=== PATIENT | female | born 1990 | race Two or more races ===

== ENCOUNTER 2024-05-12 08:45 | Inpatient (IN) | payer OTHER ==
[~2024-05-12] VITALS: Ht 162.6 cm; Wt 58.5 kg
[2024-05-12] MEDS ORDERED: OMEPRAZOLE (09:25)
[2024-05-12] MEDS ORDERED: FAMOTIDINE 40MG (09:33)
[2024-05-12 10:20] LABS: RH POSITIVE
[2024-05-16] MEDS ORDERED: ACID REDUCER20 M1 (14:14)
[2024-05-16] MEDS ORDERED: FAMOTIDINE20 MG (14:14)
[2024-05-16] MEDS ORDERED: POVIDONE-IODINE 118 ML BOTT TOP ONE (17:30)
[2024-05-16] MEDS ORDERED: CEFAZOLIN SODIUM 1,000 MG VIAL IV ONE (17:30)
[2024-05-16] MEDS ORDERED: HEMOSTATIC MATRIX 1 KIT KIT TOP ONE (17:45)
[2024-05-16] MEDS ORDERED: ONDANSETRON HCL 2 MG/ML VIAL IV PRN (18:30)
[2024-05-16] MEDS ORDERED: MORPHINE SULFATE 4 MG/ML VIAL IV PRN (18:30)
[2024-05-16] MEDS ORDERED: RINGERS SOLUTION,LACTATED 1,000 ML IV SCH (18:45)
[2024-05-16] MEDS ORDERED: MORPHINE SULFATE 4 MG/ML VIAL IV ONE ×2 (19:10→21:15)
[2024-05-16 22:17] VITALS: BP 121/80
[2024-05-17] MEDS ORDERED: CEFAZOLIN SODIUM 1,000 MG VIAL IV SCH
[2024-05-17 00:21] LABS: HEMATOCRIT 34.7 % (36.0-45.00); HEMOGLOBIN 11.8 g/dL (12.0-15.00); MEAN CELL VOLUME 83.7 fL (80.00-100.00); MEAN CORPUSCULAR HEMOGLOBIN 28.4 pg (27.00-32.0); MEAN CORPUSCULAR HGB CONC 33.9 g/dl (32.0-36.0); PLATELET COUNT 298 K/uL (150-450); RED BLOOD COUNT 4.14 M/uL (4.00-6.00); RED CELL DISTRIBUTION WIDTH 13.2 % (11.5-14.5)
[2024-05-17 01:16] VITALS: BP 125/83
[2024-05-17] MEDS ORDERED: HYDROCORTISONE SODIUM SUCC/PF 250 MG VIAL IV NR (06:00)
[2024-05-17] MEDS ORDERED: DIPHENHYDRAMINE HCL 50 MG/ML VIAL 1ML IV SCH (06:00)
[2024-05-17] MEDS ORDERED: MORPHINE SULFATE 2 MG,MORPHINE SULFATE 4 MG IV PRN (06:45)
[2024-05-17 07:14] LABS: CALCIUM 8.2 mg/dL (8.5-10.1); CREATININE SERUM 0.85 mg/dL (0.55-1.02); GFR 78.01; POTASSIUM 4.32 mEq/L (3.5-5.1)
[2024-05-17 07:20] LABS: INR 1.07; PARTIAL THROMBOPLASTIN TIME 25.1 SECONDS (22.0-34.0); PROTHROMBIN TIME 11.6 SECONDS (9.0-11.5)
[2024-05-17] MEDS ORDERED: HYOSCYAMINE SULFATE 0.125 MG TAB.SUBL SL SCH (08:00)
[2024-05-17] MEDS ORDERED: MORPHINE SULFATE 2 MG,MORPHINE SULFATE 4 MG IV SCH (08:00)
[2024-05-17 08:08] VITALS: BP 140/85
[2024-05-17] MEDS ORDERED: ENOXAPARIN SODIUM 40 MG/0.4 ML SYRINGE SUBCUTANEO SCH (09:00)
[2024-05-17 15:45] VITALS: BP 140/87
[2024-05-17] MEDS ORDERED: IBUprofen 800 MG TABLET PO PRN (21:30)
[2024-05-17] MEDS ORDERED: GABAPENTIN 300 MG CAPSULE PO PRN (21:30)
[2024-05-18 00:36] VITALS: BP 114/70
[2024-05-18 07:54] VITALS: BP 105/68
[2024-05-18 11:58] LABS: HEMATOCRIT 26.8 % (36.0-45.00); HEMOGLOBIN 9.5 g/dL (12.0-15.00); MEAN CELL VOLUME 82.5 fL (80.00-100.00); MEAN CORPUSCULAR HEMOGLOBIN 29.1 pg (27.00-32.0); MEAN CORPUSCULAR HGB CONC 35.3 g/dl (32.0-36.0); PLATELET COUNT 247 K/uL (150-450); RED BLOOD COUNT 3.25 M/uL (4.00-6.00); RED CELL DISTRIBUTION WIDTH 13.4 % (11.5-14.5)
[2024-05-18 16:38] VITALS: BP 115/87
[2024-05-19 00:45] VITALS: BP 96/58
[2024-05-19] MEDS ORDERED: ONDANSETRON HCL 2 MG/ML VIAL IV PRN (07:30)
[2024-05-19] MEDS ORDERED: MEPERIDINE HCL 25 MG/ML AMPUL IV PRN (07:30)
[2024-05-19] MEDS ORDERED: SOD FERRIC GLUC COMPLX/SUCROSE 62.5 MG/5 ML AMPUL IV SCH (09:00)
[2024-05-19 10:52] LABS: HEMATOCRIT 26.6 % (36.0-45.00); HEMOGLOBIN 9.5 g/dL (12.0-15.00); MEAN CELL VOLUME 82.8 fL (80.00-100.00); MEAN CORPUSCULAR HEMOGLOBIN 29.5 pg (27.00-32.0); MEAN CORPUSCULAR HGB CONC 35.6 g/dl (32.0-36.0); PLATELET COUNT 224 K/uL (150-450); RED BLOOD COUNT 3.21 M/uL (4.00-6.00); RED CELL DISTRIBUTION WIDTH 13.3 % (11.5-14.5)
[2024-05-19] MEDS ORDERED: RINGERS SOLUTION,LACTATED 1,000 ML IV SCH (15:45)
[2024-05-19 16:51] VITALS: BP 125/77
[2024-05-19] MEDS ORDERED: ONDANSETRON HCL 2 MG/ML VIAL IV ONE (17:00)
[2024-05-19] MEDS ORDERED: CIPROFLOXACIN IN 5 % DEXTROSE 400 MG/200 ML PIGGYBAG IV ONE (17:00)
[2024-05-19] MEDS ORDERED: fentaNYL CITRATE 50 MCG/ML AMPUL IV PUSH ONE (17:00)
[2024-05-19] MEDS ORDERED: MIDAZOLAM HCL 2 MG/2 ML VIAL IV PUSH ONE (17:00)
[2024-05-19] MEDS ORDERED: FAMOTIDINE/PF 20 MG/2 ML VIAL IV PUSH SCH (17:00)
[2024-05-20] VITALS: BP 104/70
[2024-05-20] MEDS ORDERED: GABAPENTIN 300 MG CAPSULE PO PRN (07:15)
[2024-05-20] MEDS ORDERED: IBUprofen 800 MG TABLET PO PRN (07:15)
[2024-05-20 08:39] VITALS: BP 119/77
[2024-05-20] MEDS ORDERED: MEPERIDINE HCL/PF 25 MG/ML VIAL IV PRN (11:00)
[2024-05-20] MEDS ORDERED: PROMETHAZINE HCL 25 MG/ML AMPUL IV PRN (11:00)
[2024-05-20 16:56] VITALS: BP 129/81
[2024-05-21] VITALS: BP 110/75
[2024-05-21] MEDS ORDERED: GABAPENTIN300 MG PO (07:40)
[2024-05-21] MEDS ORDERED: TYLENOL EXTRA500 MG PO (07:41)
[2024-05-21] MEDS ORDERED: MAXFE CAPLET1 EAC1 PO (07:54)
[2024-05-21] MEDS ORDERED: BACTRIM 400-801 EACH PO (07:54)
[2024-05-21 08:42] VITALS: BP 112/76
== END 2024-05-21 10:03 | disposition home or self-care (01) | DRG 742 ==
LOC: O/R 05-16 08:00 → OB/GYN 05-16 08:00 → SURH 05-16 08:45 → OB/GYN 05-16 19:44
PROVIDERS: Urology; ADMIT Obstetrics & Gynecology Gynecology; ATTEND Obstetrics & Gynecology Gynecology
PROC: 0UT90ZZ Resection of Uterus, Open Approach (ICD-10-PCS; 2024-05-16)
PROC: 0USG0ZZ Reposition Vagina, Open Approach (ICD-10-PCS; 2024-05-16)
PROC: 0UBG0ZX Excision of Vagina, Open Approach, Diagnostic (ICD-10-PCS; 2024-05-16)
PROC: 0UT70ZZ Resection of Bilateral Fallopian Tubes, Open Approach (ICD-10-PCS; principal; 2024-05-16 18:30)
PROC: BW21Y0Z Computerized Tomography (CT Scan) of Abdomen and Pelvis using Other Contrast, Unenhanced and Enhanced (ICD-10-PCS; 2024-05-17)
PROC: 0T913ZZ Drainage of Left Kidney, Percutaneous Approach (ICD-10-PCS; 2024-05-19)
DX: D25.1 Intramural leiomyoma of uterus (principal); N13.1 Hydronephrosis with ureteral stricture, not elsewhere classified; N13.30 Unspecified hydronephrosis; R10.2 Pelvic and perineal pain; Z20.822 Contact with and (suspected) exposure to COVID-19; N80.42 Endometriosis of rectovaginal septum with involvement of vagina; N80.00 Endometriosis of the uterus, unspecified

== ENCOUNTER 2024-08-04 15:00 | Inpatient (IN) | payer OTHER ==
[~2024-08-04] VITALS: Ht 162.6 cm; Wt 59.0 kg
[~2024-08-04 15:00] MED LIST: ACID REDUCER20 M1; BACTRIM 400-801 EACH PO; FAMOTIDINE 40MG; FAMOTIDINE20 MG; GABAPENTIN300 MG PO; MAXFE CAPLET1 EAC1 PO; OMEPRAZOLE; TYLENOL EXTRA500 MG PO
[2024-08-04] MEDS ORDERED: FAMOTIDINE/PF 20 MG in 0.9 % SODIUM CHLORIDE 8 ML IV PUSH STA (17:27)
[2024-08-04] MEDS ORDERED: 0.9 % SODIUM CHLORIDE 1,000 ML IV SCH ×2 (17:30→22:45)
[2024-08-04] MEDS ORDERED: ACETAMINOPHEN 500 MG GEL..CAP PO ONE ×2 (17:30→17:43)
[2024-08-04] MEDS ORDERED: ONDANSETRON HCL 2 MG/ML VIAL IV ONE (17:30)
[2024-08-04] MEDS ORDERED: FAMOTIDINE/PF 20 MG/2 ML VIAL ONE (17:43)
[2024-08-04] MEDS ORDERED: ONDANSETRON HCL 2 MG/ML VIAL ONE (17:43)
[2024-08-04 18:03] LABS: HEMATOCRIT 34.2 % (36.0-45.00); HEMOGLOBIN 11.6 g/dL (12.0-15.00); MEAN CELL VOLUME 79.5 fL (80.00-100.00); PLATELET COUNT 325 K/uL (150-450); RED CELL DISTRIBUTION WIDTH 13.5 % (11.5-14.5)
[2024-08-04 18:34] LABS: ALBUMIN 3.6 gm/dL (3.4-5.0); BILIRUBIN TOTAL 0.57 mg/dL (0.3-1.2); CALCIUM 9.2 mg/dL (8.5-10.1); CREATININE SERUM 0.81 mg/dL (0.55-1.02); GFR 81.94; GLOBULINA 4.9 G/DL (2.4-3.5); POTASSIUM 3.49 mEq/L (3.5-5.1); TOTAL PROTEIN 8.5 gm/dL (6.4-8.2)
[2024-08-04 20:27] LABS: PH,URINE 6.5 (5.0-8.0); URINE APPEARANCE Cloudy; URINE BILIRRUBIN Negative (NEGATIVE); URINE BLOOD Large; URINE COLOR Yellow; URINE GLUCOSE Negative (NEGATIVE); URINE KETONE 15 (NEGATIVE); URINE LEUKOCYTE Large; URINE NITRATE Negative; URINE UROBILINOGEN 0.2 E.U./dl
[2024-08-04 20:32] LABS: URINE CAST 2.65 uL (0.0-1.40); URINE EPITHELIAL CELLS 5.5 uL (0.0-38.8); URINE RBC 610.5 uL (0.0-20.8); URINE WBC 939.1 uL (0.0-23.2)
[2024-08-04 21:13] LABS: URINE BACTERIA > 9821.5 uL (0.0-1933); URINE PROTEIN 100 (NEGATIVE)
[2024-08-04 21:14] LABS: URINE MUCUS MODERATE
[2024-08-04] MEDS ORDERED: CEFTRIAXONE SODIUM 2,000 MG VIAL ONE (21:35)
[2024-08-04] MEDS ORDERED: CEFTRIAXONE SODIUM 2,000 MG VIAL IV ONE (21:45)
[2024-08-04] MEDS ORDERED: GABAPENTIN 300 MG CAPSULE PO SCH (22:42)
[2024-08-04] MEDS ORDERED: FAMOTIDINE/PF 20 MG in 0.9 % SODIUM CHLORIDE 8 ML IV PUSH SCH (22:42)
[2024-08-04] MEDS ORDERED: ONDANSETRON HCL 4 MG in 0.9 % SODIUM CHLORIDE 50 ML IV PRN (22:45)
[2024-08-04] MEDS ORDERED: ACETAMINOPHEN 500 MG GEL..CAP PO PRN (22:45)
[2024-08-04] MEDS ORDERED: KETOROLAC TROMETHAMINE 15 MG VIAL IU ONE (22:45)
[2024-08-05] MEDS ORDERED: FAMOTIDINE/PF 20 MG/2 ML VIAL ONE (00:20)
[2024-08-05] MEDS ORDERED: ONDANSETRON HCL 2 MG/ML VIAL ONE (00:20)
[2024-08-05] MEDS ORDERED: KETOROLAC TROMETHAMINE 30 MG VIAL ONE (00:20)
[2024-08-05 00:26] VITALS: BP 100/67; O2SAT 100
[2024-08-05 00:42] LABS: INR 1.06; PARTIAL THROMBOPLASTIN TIME 29.6 SECONDS (22.0-34.0); PROTHROMBIN TIME 11.5 SECONDS (9.0-11.5)
[2024-08-05 00:53] LABS: MAGNESIUM 1.9 mg/dL (1.8-2.4)
[2024-08-05 01:02] LABS: C-REACTIVE PROTEIN 8.5 MG/DL (0.00-0.29)
[2024-08-05 03:51] VITALS: BP 85/52; O2SAT 97
[2024-08-05] MEDS ORDERED: CEFTRIAXONE SODIUM 2,000 MG in 0.9 % SODIUM CHLORIDE 100 ML IV SCH (09:00)
[2024-08-05 09:24] VITALS: BP 109/64; O2SAT 97
[2024-08-05] MEDS ORDERED: MEROPENEM 500 MG/VIAL VIAL IV SCH (18:00)
[2024-08-05 19:03] VITALS: BP 133/83
[2024-08-06 01:38] VITALS: BP 90/50; O2SAT 98
[2024-08-06 06:27] LABS: HEMATOCRIT 27.1 % (36.0-45.00); HEMOGLOBIN 9.5 g/dL (12.0-15.00); MEAN CELL VOLUME 79.8 fL (80.00-100.00); MEAN CORPUSCULAR HGB CONC 35.1 g/dl (32.0-36.0); PLATELET COUNT 249 K/uL (150-450); RED CELL DISTRIBUTION WIDTH 13.7 % (11.5-14.5)
[2024-08-06 07:43] LABS: ALBUMIN 2.7 gm/dL (3.4-5.0); BILIRUBIN TOTAL 0.2 mg/dL (0.3-1.2); CALCIUM 8.6 mg/dL (8.5-10.1); CREATININE SERUM 0.58 mg/dL (0.55-1.02); GFR 120.47; GLOBULINA 3.3 G/DL (2.4-3.5); MAGNESIUM 1.8 mg/dL (1.8-2.4); PHOSPHOROUS 2.9 mg/dL (2.5-4.9); POTASSIUM 3.93 mEq/L (3.5-5.1)
[2024-08-06 07:47] LABS: C-REACTIVE PROTEIN 8.63 MG/DL (0.00-0.29)
[2024-08-06 08:36] VITALS: BP 104/70; O2SAT 100
[2024-08-06] MEDS ORDERED: FAMOTIDINE/PF 20 MG/2 ML VIAL ONE ×2 (15:24→15:52)
[2024-08-06 18:04] VITALS: BP 111/71; O2SAT 100
[2024-08-07 00:41] VITALS: BP 91/59
[2024-08-07 04:41] LABS: INR 1.03; PARTIAL THROMBOPLASTIN TIME 29.3 SECONDS (22.0-34.0); PROTHROMBIN TIME 11.2 SECONDS (9.0-11.5)
[2024-08-07 04:49] LABS: ALBUMIN 2.7 gm/dL (3.4-5.0); BILIRUBIN TOTAL 0.2 mg/dL (0.3-1.2); CALCIUM 8.6 mg/dL (8.5-10.1); CREATININE SERUM 0.57 mg/dL (0.55-1.02); GFR 122.92; GLOBULINA 3.5 G/DL (2.4-3.5); POTASSIUM 3.87 mEq/L (3.5-5.1); TOTAL PROTEIN 6.2 gm/dL (6.4-8.2)
[2024-08-07 06:20] LABS: HEMATOCRIT 27.6 % (36.0-45.00); HEMOGLOBIN 9.6 g/dL (12.0-15.00); MEAN CELL VOLUME 79.2 fL (80.00-100.00); MEAN CORPUSCULAR HEMOGLOBIN 27.6 pg (27.00-32.0); MEAN CORPUSCULAR HGB CONC 34.9 g/dl (32.0-36.0); PLATELET COUNT 293 K/uL (150-450); RED BLOOD COUNT 3.49 M/uL (4.00-6.00); RED CELL DISTRIBUTION WIDTH 13.5 % (11.5-14.5)
[2024-08-07 08:05] LABS: URINE APPEARANCE Clear; URINE BILIRRUBIN Negative (NEGATIVE); URINE BLOOD Trace; URINE COLOR Yellow; URINE GLUCOSE Negative (NEGATIVE); URINE KETONE Negative (NEGATIVE); URINE LEUKOCYTE Large; URINE NITRATE Positive; URINE PROTEIN Negative (NEGATIVE); URINE UROBILINOGEN 0.2 E.U./dl
[2024-08-07 08:06] LABS: URINE BACTERIA 1059.7 uL (0.0-1933); URINE EPITHELIAL CELLS 7.1 uL (0.0-38.8); URINE RBC 2.5 uL (0.0-20.8); URINE WBC 130.4 uL (0.0-23.2)
[2024-08-07 08:13] LABS: URINE CAST 0.44 uL (0.0-1.40)
[2024-08-07 13:33] VITALS: BP 118/84
[2024-08-07 15:40] VITALS: BP 105/71; O2SAT 100
[2024-08-08 00:52] VITALS: BP 84/52; O2SAT 100
[2024-08-08 08:49] VITALS: BP 107/68; O2SAT 99
[2024-08-08] MEDS ORDERED: SOD FERRIC GLUC COMPLX/SUCROSE 62.5 MG in 0.9 % SODIUM CHLORIDE 50 ML IV SCH (09:00)
[2024-08-08 15:42] LABS: PH,URINE 7.5 (5.0-8.0); URINE APPEARANCE Clear; URINE BILIRRUBIN Negative (NEGATIVE); URINE BLOOD Small; URINE COLOR Yellow; URINE GLUCOSE Negative (NEGATIVE); URINE KETONE Negative (NEGATIVE); URINE LEUKOCYTE Large; URINE NITRATE Negative; URINE PROTEIN Trace (NEGATIVE); URINE UROBILINOGEN 0.2 E.U./dl
[2024-08-08 15:43] LABS: URINE BACTERIA 1505.4 uL (0.0-1933); URINE EPITHELIAL CELLS 10.7 uL (0.0-38.8); URINE RBC 81.6 uL (0.0-20.8); URINE WBC 407.3 uL (0.0-23.2)
[2024-08-08 16:30] VITALS: BP 94/61; O2SAT 100
[2024-08-08 16:43] LABS: URINE CAST 0.58 uL (0.0-1.40)
[2024-08-08] MEDS ORDERED: VANCOMYCIN HCL 5 MG/ML REDILUIDO IV SCH (17:00)
[2024-08-08] MEDS ORDERED: MIDAZOLAM HCL 2 MG/2 ML VIAL IV PUSH ONE (19:45)
[2024-08-08] MEDS ORDERED: fentaNYL CITRATE 50 MCG/ML AMPUL IV PUSH ONE (19:45)
[2024-08-08] MEDS ORDERED: FAMOtidine 20 MG TABLET PO SCH (21:00)
[2024-08-09 00:17] VITALS: BP 90/52
[2024-08-09] MEDS ORDERED: FAMOTIDINE20 MG PO (09:06)
[2024-08-09] MEDS ORDERED: GABAPENTIN300 MG PO (09:06)
[2024-08-09 09:10] VITALS: BP 129/64; O2SAT 98
[2024-08-09 09:11] VITALS: BP 92/63; O2SAT 99
== END 2024-08-09 10:54 | disposition home or self-care (01) | DRG 690 ==
LOC: ER 15:02 → MEDI 22:43
PROVIDERS: General Practice; Internal Medicine Infectious Disease; Urology; ADMIT Internal Medicine; ATTEND Internal Medicine
PROC: BW21ZZZ Computerized Tomography (CT Scan) of Abdomen and Pelvis (ICD-10-PCS; 2024-08-05)
PROC: 0T25X0Z Change Drainage Device in Kidney, External Approach (ICD-10-PCS; principal; 2024-08-08)
DX: N39.0 Urinary tract infection, site not specified (principal); N80.8 Other endometriosis; N13.5 Crossing vessel and stricture of ureter without hydronephrosis; D64.9 Anemia, unspecified

== ENCOUNTER 2024-08-11 19:41 | Inpatient (IN) | payer OTHER ==
[~2024-08-11] VITALS: Ht 160 cm; Wt 51.7 kg
[~2024-08-11 19:41] MED LIST changes: +FAMOTIDINE20 MG PO
--- NOTE | 2024-08-11 20:31 | NUR ---
PACIENTE REFIERE QUE COMENZO HOY CON SANGRA EN ORINA DE LA NEFROSTOMIA DEL LADO DEE DESDE HOY
[2024-08-11] MEDS ORDERED: 0.9 % SODIUM CHLORIDE 1,000 ML IV SCH ×2 (21:00→22:15)
[2024-08-11] MEDS ORDERED: CEFTRIAXONE SODIUM 1,000 MG VIAL ONE (21:00)
[2024-08-11] MEDS ORDERED: CEFTRIAXONE SODIUM 1,000 MG VIAL IV ONE (21:00)
--- NOTE | 2024-08-11 21:08 | NUR ---
SE EDUCA A PTE SOBRE TX A RECIBIR EN EL AREA LA MISMA REFIERE ENTENDER. SE REALIZAN MUESTRAS Y SE ENVIAN, SE CANALIZA PTE Y SE COLOCAN MEDICAMENTOS ERNESTO ORDEN MEDICA. SE COLECTA MUESTAR DE ORINA DE LA NEFROSTOMIA DE PTE. SE GOSIA LA MISMA EN ESPERA DE ESTUDIO PENDIENTE Y RESULTADOS DE LAB.
[2024-08-11] MEDS ORDERED: ONDANSETRON HCL 2 MG/ML VIAL IV ONE (21:30)
[2024-08-11] MEDS ORDERED: ONDANSETRON HCL 2 MG/ML VIAL ONE (21:31)
[2024-08-11 21:35] LABS: HEMATOCRIT 35.5 % (36.0-45.00); HEMOGLOBIN 11.9 g/dL (12.0-15.00); MEAN CELL VOLUME 79.6 fL (80.00-100.00); MEAN CORPUSCULAR HEMOGLOBIN 26.8 pg (27.00-32.0); MEAN CORPUSCULAR HGB CONC 33.6 g/dl (32.0-36.0); PLATELET COUNT 531 K/uL (150-450); RED BLOOD COUNT 4.46 M/uL (4.00-6.00)
[2024-08-11 22:02] LABS: ALBUMIN 3.8 gm/dL (3.4-5.0); BILIRUBIN TOTAL 0.27 mg/dL (0.3-1.2); CALCIUM 10.1 mg/dL (8.5-10.1); CREATININE SERUM 0.58 mg/dL (0.55-1.02); GFR 120.47; GLOBULINA 4.8 G/DL (2.4-3.5); POTASSIUM 4.1 mEq/L (3.5-5.1); TOTAL PROTEIN 8.6 gm/dL (6.4-8.2)
[2024-08-11] MEDS ORDERED: ACETAMINOPHEN 500 MG GEL..CAP PO PRN (22:15)
[2024-08-11] MEDS ORDERED: ONDANSETRON HCL 4 MG in 0.9 % SODIUM CHLORIDE 50 ML IV PRN (22:15)
[2024-08-11] MEDS ORDERED: GABAPENTIN 100 MG CAPSULE PO SCH (22:52)
[2024-08-11 23:30] LABS: PH,URINE 7.5 (5.0-8.0); URINE APPEARANCE Turbid; URINE BILIRRUBIN Small (NEGATIVE); URINE BLOOD Large; URINE COLOR Red; URINE GLUCOSE Negative (NEGATIVE); URINE KETONE Negative (NEGATIVE); URINE LEUKOCYTE Moderate; URINE NITRATE Positive; URINE UROBILINOGEN 0.2 E.U./dl
[2024-08-11 23:31] LABS: URINE BACTERIA 1445.5 uL (0.0-1933); URINE EPITHELIAL CELLS 4.4 uL (0.0-38.8); URINE WBC 309.1 uL (0.0-23.2)
[2024-08-11 23:55] LABS: URINE PROTEIN 300 (NEGATIVE); URINE RBC > 10558.9 uL (0.0-20.8)
[2024-08-12 00:29] LABS: INR 1.04; PARTIAL THROMBOPLASTIN TIME 30.5 SECONDS (22.0-34.0); PROTHROMBIN TIME 11.3 SECONDS (9.0-11.5)
[2024-08-12 00:36] VITALS: BP 108/71; O2SAT 96
[2024-08-12 03:15] VITALS: BP 111/72; O2SAT 98
[2024-08-12 08:00] VITALS: BP 103/55; O2SAT 99
[2024-08-12] MEDS ORDERED: CEFTRIAXONE SODIUM 2,000 MG in 0.9 % SODIUM CHLORIDE 100 ML IV SCH (09:00)
[2024-08-12] MEDS ORDERED: FAMOTIDINE/PF 20 MG in 0.9 % SODIUM CHLORIDE 8 ML IV PUSH SCH (09:00)
[2024-08-12 16:00] VITALS: BP 88/53; O2SAT 100
[2024-08-13 00:42] VITALS: BP 90/51; O2SAT 95
[2024-08-13 08:00] VITALS: BP 110/65; O2SAT 98
[2024-08-13 16:22] VITALS: BP 107/54; O2SAT 100
== END 2024-08-13 21:52 | disposition home or self-care (01) | DRG 690 ==
LOC: ER 19:43 → SURG 22:14
PROVIDERS: General Practice; ADMIT Internal Medicine; ATTEND Internal Medicine
PROC: BW21YZZ Computerized Tomography (CT Scan) of Abdomen and Pelvis using Other Contrast (ICD-10-PCS; principal; 2024-08-11)
DX: N39.0 Urinary tract infection, site not specified (principal); N99.520 Hemorrhage of incontinent external stoma of urinary tract; R31.0 Gross hematuria; K21.9 Gastro-esophageal reflux disease without esophagitis; G62.9 Polyneuropathy, unspecified; E86.0 Dehydration; N80.529 Endometriosis of the sigmoid colon, unspecified depth; N80.102 Endometriosis of left ovary, unspecified depth

== ENCOUNTER 2024-10-07 19:17 | Emergency (ER) | payer OTHER ==
[~2024-10-07] VITALS: Ht 162.6 cm; Wt 56.7 kg
[2024-10-07] MEDS ORDERED: PROTONIX IV40 MG IV (19:53)
[2024-10-07] MEDS ORDERED: FAMOTIDINE/PF 20 MG in 0.9 % SODIUM CHLORIDE 8 ML IV PUSH STA (19:59)
[2024-10-07] MEDS ORDERED: ONDANSETRON HCL 2 MG/ML VIAL IV ONE (20:00)
[2024-10-07] MEDS ORDERED: DIPHENOXYLATE HCL/ATROPINE 1 UDTAB TABLET PO ONE (20:15)
[2024-10-07] MEDS ORDERED: 0.9 % SODIUM CHLORIDE 1,000 ML IV SCH (20:15)
[2024-10-07] MEDS ORDERED: HYOSCYAMINE SULFATE 0.125 MG TAB.SUBL SL ONE (20:15)
[2024-10-07] MEDS ORDERED: FAMOTIDINE/PF 20 MG/2 ML VIAL ONE (20:37)
[2024-10-07] MEDS ORDERED: ONDANSETRON HCL 2 MG/ML VIAL ONE (20:37)
[2024-10-07] MEDS ORDERED: HYOSCYAMINE SULFATE 0.125 MG TAB.SUBL ONE (20:37)
[2024-10-07 20:42] LABS: HEMATOCRIT 34.2 % (36.0-45.00); HEMOGLOBIN 11.8 g/dL (12.0-15.00); MEAN CELL VOLUME 79.1 fL (80.00-100.00); MEAN CORPUSCULAR HEMOGLOBIN 27.3 pg (27.00-32.0); MEAN CORPUSCULAR HGB CONC 34.5 g/dl (32.0-36.0); PLATELET COUNT 332 K/uL (150-450); RED BLOOD COUNT 4.33 M/uL (4.00-6.00); RED CELL DISTRIBUTION WIDTH 15.7 % (11.5-14.5)
[2024-10-07 21:19] LABS: ALBUMIN 3.4 gm/dL (3.4-5.0); BILIRUBIN TOTAL 0.34 mg/dL (0.3-1.2); CALCIUM 8.9 mg/dL (8.5-10.1); CREATININE SERUM 0.73 mg/dL (0.55-1.02); GFR 92.39; GLOBULINA 4.3 G/DL (2.4-3.5); POTASSIUM 3.48 mEq/L (3.5-5.1); TOTAL PROTEIN 7.7 gm/dL (6.4-8.2)
[2024-10-07] MEDS ORDERED: ONDANSETRON ODT8 MG PO (23:08)
== END 2024-10-08 00:06 | disposition home or self-care (01) ==
LOC: ER 19:18
PROVIDERS: General Practice
DX: R11.2 Nausea with vomiting, unspecified (principal); R19.7 Diarrhea, unspecified; R10.9 Unspecified abdominal pain; R11.10 Vomiting, unspecified; Z91.011 Allergy to milk products; Z91.013 Allergy to seafood; Z91.018 Allergy to other foods

== ENCOUNTER 2024-11-11 08:11 | Outpatient (CLI) | payer OTHER ==
[~2024-11-11 08:11] MED LIST changes: +ONDANSETRON ODT8 MG PO; +PROTONIX IV40 MG IV
[2024-11-11 10:11] LABS: CREATININE SERUM 0.62 mg/dL (0.55-1.02)
== END 2024-11-11 08:20 | disposition home or self-care (01) ==
LOC: LAB 08:11
PROVIDERS: ATTEND Urology
DX: N13.1 Hydronephrosis with ureteral stricture, not elsewhere classified (principal); N31.1 Reflex neuropathic bladder, not elsewhere classified

== ENCOUNTER 2024-11-14 07:46 | Outpatient (CLI) | payer OTHER | END 2024-11-14 07:49 | disposition home or self-care (01) | LOC: TOM 07:46 | PROVIDERS: ATTEND Urology | DX: N13.1 Hydronephrosis with ureteral stricture, not elsewhere classified (principal) ==

== ENCOUNTER 2025-01-30 16:20 | Inpatient (IN) | payer OTHER ==
[~2025-01-30] VITALS: Ht 162.6 cm; Wt 61.2 kg
[2025-01-30] MEDS ORDERED: NEURONTIN300 MG PO (16:40)
[2025-01-30 18:03] LABS: BASO % 0.4 % (0.1-1.2); EOS # 0.24 (0.04-0.54); EOS % 2.1 % (0.7-7.0); LYMPH # 2.86 (1.18-3.74); LYMPH % 25.4 % (19.3-53.1); MEAN PLATELET VOLUME 9.30 fl (9.4-12.4); MONO # 0.66 (0.24-0.82); MONO % 5.9 % (4.7-12.5); NEUT # 7.42 (1.56-6.13); NEUT % 65.9 % (34.0-71.1); RED CELL DISTRIBUTION WIDTH 12.6 % (11.6-14.4)
[2025-01-30 18:19] LABS: INR 1.0
[2025-01-30 18:24] LABS: ALT/SGPT 25.0 U/L (12-78); AST/SGOT 16.0 U/L (15-37); BILIRUBIN TOTAL 0.22 mg/dL (0.3-1.2); BUN CREA RATIO 16.0 (7.0-25.0); CREATININE SERUM 0.68 mg/dL (0.55-1.02); GFR 100.27; GLOBULINA 4.4 G/DL (2.4-3.5); GLUCOSE FASTING 90.0 mg/dL (65-100); OSMOLALITY SERUM 280.0 MOSM/KG (275-295)
[2025-01-30 18:27] LABS: URINE APPEARANCE Cloudy; URINE BILIRRUBIN Negative (NEGATIVE); URINE BLOOD Negative; URINE COLOR Yellow; URINE GLUCOSE Negative (NEGATIVE); URINE KETONE Trace (NEGATIVE); URINE LEUKOCYTE Moderate; URINE NITRATE Negative; URINE PROTEIN Trace (NEGATIVE); URINE UROBILINOGEN 1.0 E.U./dl
[2025-01-30 18:31] LABS: URINE BACTERIA 2606.1 uL (0.0-1933); URINE EPITHELIAL CELLS 69.0 uL (0.0-38.8); URINE RBC 19.7 uL (0.0-20.8); URINE WBC 369.8 uL (0.0-23.2)
[2025-01-30 18:42] LABS: URINE CAST 0.43 uL (0.0-1.40)
[2025-01-30] MEDS ORDERED: FAMOTIDINE/PF 20 MG/2 ML VIAL IV PUSH ONE (19:15)
[2025-01-30] MEDS ORDERED: FAMOTIDINE/PF 20 MG/2 ML VIAL ONE (19:16)
[2025-01-30] MEDS ORDERED: CEFTRIAXONE SODIUM 2,000 MG VIAL ONE (20:54)
[2025-01-30] MEDS ORDERED: CEFTRIAXONE SODIUM 2,000 MG VIAL IV ONE (21:00)
[2025-01-30] MEDS ORDERED: GABAPENTIN 300 MG CAPSULE PO SCH (21:27)
[2025-01-30] MEDS ORDERED: ACETAMINOPHEN 500 MG GEL..CAP PO PRN (21:30)
[2025-01-30] MEDS ORDERED: 0.9 % SODIUM CHLORIDE 1,000 ML IV SCH (21:30)
[2025-01-31 00:14] LABS: INR 1.01
[2025-01-31 00:45] VITALS: BP 91/60; BP 97/60; O2SAT 99
[2025-01-31 01:38] VITALS: BP 103/68; O2SAT 98
[2025-01-31 08:00] VITALS: BP 102/72; O2SAT 97
[2025-01-31] MEDS ORDERED: FAMOTIDINE/PF 20 MG in 0.9 % SODIUM CHLORIDE 8 ML IV PUSH SCH (09:00)
[2025-01-31] MEDS ORDERED: CEFTRIAXONE SODIUM 2,000 MG in 0.9 % SODIUM CHLORIDE 100 ML IV SCH (09:00)
[2025-01-31 15:30] VITALS: BP 103/69; O2SAT 99
[2025-02-01] MEDS ORDERED: ONDANSETRON HCL 2 MG/ML VIAL ONE (02:33)
[2025-02-01] MEDS ORDERED: ONDANSETRON HCL 4 MG in DEXTROSE 5 % IN WATER 50 ML IV PRN (02:45)
[2025-02-01 08:00] VITALS: BP 95/60; O2SAT 100
[2025-02-01] MEDS ORDERED: PANTOPRAZOLE SODIUM 40 MG/VIAL VIAL IV PUSH SCH (09:00)
[2025-02-01 16:30] VITALS: BP 109/70; O2SAT 99
[2025-02-02] VITALS: BP 99/54; O2SAT 98
[2025-02-02 12:09] LABS: BASO % 0.3 % (0.1-1.2); EOS # 0.21 (0.04-0.54); EOS % 2.7 % (0.7-7.0); LYMPH # 2.03 (1.18-3.74); LYMPH % 25.8 % (19.3-53.1); MEAN PLATELET VOLUME 9.50 fl (9.4-12.4); MONO # 0.52 (0.24-0.82); MONO % 6.6 % (4.7-12.5); NEUT # 5.08 (1.56-6.13); NEUT % 64.3 % (34.0-71.1); RED CELL DISTRIBUTION WIDTH 12.5 % (11.6-14.4)
[2025-02-02 13:09] LABS: ALT/SGPT 25.0 U/L (12-78); AST/SGOT 14.0 U/L (15-37); BILIRUBIN TOTAL 0.15 mg/dL (0.3-1.2); BUN CREA RATIO 12.0 (7.0-25.0); CREATININE SERUM 0.59 mg/dL (0.55-1.02); GFR 118.12; GLOBULINA 3.6 G/DL (2.4-3.5); GLUCOSE FASTING 84.0 mg/dL (65-100); OSMOLALITY SERUM 280.0 MOSM/KG (275-295)
[2025-02-02] MEDS ORDERED: LIDOCAINE HCL 1% 20 ML VIAL IJ ONE (15:31)
[2025-02-02] MEDS ORDERED: IOVERSOL 320 MG/ML - 50 ML VIAL IV ONE (15:32)
[2025-02-02] MEDS ORDERED: CHLORHEXIDINE GLUCONATE 120 ML BOTTLE TOP ONE (15:32)
[2025-02-02] MEDS ORDERED: BUPIVACAINE HCL/MPF 0.5% 30ML VIAL ONE (15:36)
[2025-02-02 16:00] VITALS: BP 116/70; O2SAT 97
[2025-02-02 20:48] VITALS: BP 136/90; O2SAT 96
[2025-02-03 00:27] VITALS: BP 91/51; O2SAT 98
[2025-02-03 08:00] VITALS: BP 106/72; O2SAT 99
[2025-02-03 12:42] LABS: URINE APPEARANCE Clear; URINE BILIRRUBIN Negative (NEGATIVE); URINE BLOOD Moderate; URINE COLOR Yellow; URINE GLUCOSE Negative (NEGATIVE); URINE KETONE Negative (NEGATIVE); URINE LEUKOCYTE Moderate; URINE NITRATE Negative; URINE PROTEIN Negative (NEGATIVE); URINE UROBILINOGEN 0.2 E.U./dl
[2025-02-03 12:46] LABS: URINE BACTERIA 19.1 uL (0.0-1933); URINE EPITHELIAL CELLS 1.9 uL (0.0-38.8); URINE RBC 37.3 uL (0.0-20.8); URINE WBC 33.5 uL (0.0-23.2)
[2025-02-03 12:54] LABS: URINE CAST 0.14 uL (0.0-1.40)
[2025-02-03] MEDS ORDERED: PROTONIX40 MG PO (13:28)
[2025-02-03] MEDS ORDERED: LEVOFLOXACIN750 MG PO (13:28)
== END 2025-02-03 14:38 | disposition home or self-care (01) | DRG 690 ==
LOC: ER 16:20 → SURG 21:41 → SEC-K 21:41 → SURG 23:00
PROVIDERS: General Practice; Internal Medicine Infectious Disease; Radiology Vascular & Interventional Radiology; ADMIT Internal Medicine; ATTEND Internal Medicine
PROC: BW21YZZ Computerized Tomography (CT Scan) of Abdomen and Pelvis using Other Contrast (ICD-10-PCS; 2025-01-30)
PROC: 0T25X0Z Change Drainage Device in Kidney, External Approach (ICD-10-PCS; principal; 2025-02-02 16:00)
DX: N39.0 Urinary tract infection, site not specified (principal); T83.098A Other mechanical complication of other urinary catheter, initial encounter; D72.829 Elevated white blood cell count, unspecified

== ENCOUNTER 2025-03-29 17:52 | Outpatient (CLI) | payer OTHER ==
[~2025-03-29 17:52] MED LIST changes: +LEVOFLOXACIN750 MG PO; +NEURONTIN300 MG PO; +PROTONIX40 MG PO
[2025-03-29 18:28] LABS: CREATININE SERUM 0.82 mg/dL (0.55-1.02)
== END 2025-03-29 18:00 | disposition home or self-care (01) ==
LOC: LAB 17:52
PROVIDERS: ATTEND Radiology Diagnostic Radiology
DX: N00.3 Acute nephritic syndrome with diffuse mesangial proliferative glomerulonephritis (principal)

== ENCOUNTER 2025-04-03 08:22 | Outpatient (CLI) | payer OTHER | END 2025-04-03 08:30 | disposition home or self-care (01) | LOC: TOM 08:22 | PROVIDERS: ATTEND Urology | DX: N80.30 Endometriosis of pelvic peritoneum, unspecified (principal); R31.0 Gross hematuria; N80.123 Deep endometriosis of bilateral ovaries; K59.09 Other constipation ==

== ENCOUNTER 2025-04-05 09:15 | Inpatient (IN) | payer OTHER ==
[~2025-04-05] VITALS: Ht 162.6 cm; Wt 63.5 kg
[2025-04-05 11:02] LABS: COVID-19 AG NEGATIVE (NEGATIVE)
[2025-04-10] MEDS ORDERED: ERTAPENEM SODIUM 1,000 MG VIAL ONE (07:17)
[2025-04-10] MEDS ORDERED: METRONIDAZOLE/SODIUM CHLORIDE 500 MG/100 ML PIGGYBACK IV ONE (07:47)
[2025-04-10] MEDS ORDERED: CEFTRIAXONE SODIUM 2,000 MG VIAL ONE (07:47)
[2025-04-10] MEDS ORDERED: GENTAMICIN SULFATE 40 MG/ML VIAL ONE (08:11)
[2025-04-10] MEDS ORDERED: BUPIVACAINE HCL/MPF 0.5% 30ML VIAL ONE (08:12)
[2025-04-10] MEDS ORDERED: POVIDONE-IODINE 118 ML BOTT TOP ONE (08:12)
[2025-04-10] MEDS ORDERED: LIDOCAINE HCL 1%/EPINEPHRINE 20ML VIAL IJ ONE (08:12)
[2025-04-10] MEDS ORDERED: CHLORHEXIDINE GLUCONATE 120 ML BOTTLE TOP ONE (08:12)
[2025-04-10] MEDS ORDERED: ENOXAPARIN SODIUM 40 MG/0.4 ML SYRINGE SUBCUTANEO ONE (08:34)
[2025-04-10] MEDS ORDERED: VISTASEAL DUAL APPICATOR 1 EACH APPL TOP ONE ×3 (12:30→18:15)
[2025-04-10] MEDS ORDERED: THROMBIN,HU/FIBRINOGEN/CALCIUM 10 ML SYRINGE TOP ONE ×3 (12:30→18:15)
[2025-04-10 16:16] LABS: BASO % 0.2 % (0.1-1.2); EOS # 0.03 (0.04-0.54); EOS % 0.2 % (0.7-7.0); LYMPH # 1.41 (1.18-3.74); LYMPH % 8.1 % (19.3-53.1); MEAN PLATELET VOLUME 10.50 fl (9.4-12.4); MONO # 0.82 (0.24-0.82); MONO % 4.7 % (4.7-12.5); NEUT # 15.07 (1.56-6.13); NEUT % 86.5 % (34.0-71.1); RED CELL DISTRIBUTION WIDTH 12.8 % (11.6-14.4)
[2025-04-10] MEDS ORDERED: SUGAMMADEX SODIUM 200 MG/2 ML VIAL IV ONE ×2 (16:53→18:15)
[2025-04-10] MEDS ORDERED: SIMETHICONE 125 MG CAPSULE PO SCH (17:00)
[2025-04-10] MEDS ORDERED: MORPHINE SULFATE 4 MG/ML CARTRIDGE IV PRN (17:00)
[2025-04-10] MEDS ORDERED: OxyCODONE HCL 5 MG TABLET (ROXICODONE) PO PRN (17:00)
[2025-04-10] MEDS ORDERED: RINGERS SOLUTION,LACTATED 1,000 ML IV SCH (17:00)
[2025-04-10] MEDS ORDERED: ONDANSETRON HCL 2 MG/ML VIAL IV PRN (17:00)
[2025-04-10] MEDS ORDERED: METOCLOPRAMIDE HCL 5 MG/ML VIAL IV SCH (17:00)
[2025-04-10] MEDS ORDERED: GABAPENTIN 300 MG CAPSULE PO SCH (17:00)
[2025-04-10] MEDS ORDERED: HYOSCYAMINE SULFATE 0.125 MG TAB.SUBL SL SCH (17:00)
[2025-04-10 19:32] LABS: BASO % 0.2 % (0.1-1.2); EOS # 0.01 (0.04-0.54); EOS % 0.1 % (0.7-7.0); LYMPH # 0.97 (1.18-3.74); LYMPH % 5.4 % (19.3-53.1); MEAN PLATELET VOLUME 9.40 fl (9.4-12.4); MONO # 1.02 (0.24-0.82); MONO % 5.7 % (4.7-12.5); NEUT # 15.89 (1.56-6.13); NEUT % 88.3 % (34.0-71.1); RED CELL DISTRIBUTION WIDTH 13.0 % (11.6-14.4)
[2025-04-10] MEDS ORDERED: ACETAMINOPHEN 500 MG GEL..CAP PO SCH (20:00)
[2025-04-10] MEDS ORDERED: FAMOTIDINE/PF 20 MG/2 ML VIAL IV PUSH SCH (21:00)
[2025-04-10] MEDS ORDERED: CELECOXIB 200 MG CAPSULE PO SCH (21:00)
[2025-04-11 02:47] VITALS: BP 114/73; O2SAT 98
[2025-04-11 08:43] VITALS: BP 94/66; O2SAT 98
[2025-04-11 09:00] LABS: BASO % 0.2 % (0.1-1.2); EOS # 0.04 (0.04-0.54); EOS % 0.4 % (0.7-7.0); LYMPH # 1.75 (1.18-3.74); LYMPH % 16.6 % (19.3-53.1); MEAN PLATELET VOLUME 9.80 fl (9.4-12.4); MONO # 0.64 (0.24-0.82); MONO % 6.1 % (4.7-12.5); NEUT # 8.07 (1.56-6.13); NEUT % 76.3 % (34.0-71.1); RED CELL DISTRIBUTION WIDTH 12.9 % (11.6-14.4)
[2025-04-11] MEDS ORDERED: LACTOBACILLUS ACIDOPHILUS 1 CAP CAP PO SCH (09:00)
[2025-04-11 09:47] LABS: BUN CREA RATIO 13.0 (7.0-25.0); CREATININE SERUM 0.75 mg/dL (0.55-1.02); GFR 89.55; GLUCOSE FASTING 105.0 mg/dL (65-100); OSMOLALITY SERUM 283.0 MOSM/KG (275-295)
[2025-04-11] MEDS ORDERED: MAGNESIUM SULFATE IN WATER 50 ML IV ONE (11:30)
[2025-04-11 16:00] VITALS: BP 127/76; O2SAT 99
[2025-04-11] MEDS ORDERED: ENOXAPARIN SODIUM 40 MG/0.4 ML SYRINGE SUBCUTANEO SCH (17:00)
[2025-04-12] VITALS: BP 120/75; O2SAT 95
[2025-04-12] MEDS ORDERED: ENOXAPARIN SODIUM 40 MG/0.4 ML SYRINGE SUBCUTANEO SCH (09:00)
[2025-04-12 09:58] VITALS: BP 103/67; O2SAT 95
[2025-04-12 13:31] LABS: BASO % 0.3 % (0.1-1.2); EOS # 0.13 (0.04-0.54); EOS % 1.3 % (0.7-7.0); LYMPH # 1.94 (1.18-3.74); LYMPH % 18.7 % (19.3-53.1); MEAN PLATELET VOLUME 10.40 fl (9.4-12.4); MONO # 0.73 (0.24-0.82); MONO % 7.1 % (4.7-12.5); NEUT # 7.48 (1.56-6.13); NEUT % 72.2 % (34.0-71.1); RED CELL DISTRIBUTION WIDTH 13.0 % (11.6-14.4)
[2025-04-12 14:01] LABS: BUN CREA RATIO 13.0 (7.0-25.0); CREATININE SERUM 0.72 mg/dL (0.55-1.02); GFR 93.87; GLUCOSE FASTING 97.0 mg/dL (65-100); OSMOLALITY SERUM 284.0 MOSM/KG (275-295)
[2025-04-12 17:19] VITALS: BP 109/73; O2SAT 99
[2025-04-12 23:46] VITALS: BP 96/64; O2SAT 95
[2025-04-13 08:00] VITALS: BP 92/60; O2SAT 98
[2025-04-13] MEDS ORDERED: POLYETHYLENE GLYCOL 3350 17 GM BLIST.PACK PO NR (09:00)
[2025-04-13 16:50] VITALS: BP 97/68; O2SAT 100
[2025-04-14] VITALS: BP 106/69; O2SAT 97
[2025-04-14 06:55] LABS: BASO % 0.2 % (0.1-1.2); EOS # 0.24 (0.04-0.54); EOS % 3.6 % (0.7-7.0); LYMPH # 1.47 (1.18-3.74); LYMPH % 22.1 % (19.3-53.1); MEAN PLATELET VOLUME 9.70 fl (9.4-12.4); MONO # 0.42 (0.24-0.82); MONO % 6.3 % (4.7-12.5); NEUT # 4.50 (1.56-6.13); NEUT % 67.6 % (34.0-71.1); RED CELL DISTRIBUTION WIDTH 12.8 % (11.6-14.4)
[2025-04-14 07:18] LABS: BUN CREA RATIO 22.0 (7.0-25.0); CREATININE SERUM 0.63 mg/dL (0.55-1.02); GFR 109.51; GLUCOSE FASTING 93.0 mg/dL (65-100); OSMOLALITY SERUM 287.0 MOSM/KG (275-295)
[2025-04-14 08:13] VITALS: BP 107/70; O2SAT 98
[2025-04-14] MEDS ORDERED: NEURONTIN300 MG PO (08:32)
== END 2025-04-14 14:34 | disposition home or self-care (01) | DRG 746 ==
LOC: SURG 04-10 06:00 → O/R 04-10 06:00 → SURG 04-10 07:00
PROVIDERS: ADMIT Surgery; ATTEND Surgery
PROC: 0WBH4ZZ Excision of Retroperitoneum, Percutaneous Endoscopic Approach (ICD-10-PCS; 2025-04-10)
PROC: 0DNW4ZZ Release Peritoneum, Percutaneous Endoscopic Approach (ICD-10-PCS; 2025-04-10)
PROC: 8E0W4CZ Robotic Assisted Procedure of Trunk Region, Percutaneous Endoscopic Approach (ICD-10-PCS; 2025-04-10)
PROC: 0DJD8ZZ Inspection of Lower Intestinal Tract, Via Natural or Artificial Opening Endoscopic (ICD-10-PCS; 2025-04-10)
PROC: 0UBG4ZZ Excision of Vagina, Percutaneous Endoscopic Approach (ICD-10-PCS; principal; 2025-04-10 07:00)
DX: N83.11 Corpus luteum cyst of right ovary (principal); N13.1 Hydronephrosis with ureteral stricture, not elsewhere classified; N80.9 Endometriosis, unspecified; N80.42 Endometriosis of rectovaginal septum with involvement of vagina; N80.A62 Endometriosis of left ureter, unspecified depth
CPT/HCPCS: 44180; 76770; 45330 ×2; 58662; S2900

== ENCOUNTER 2025-04-29 17:24 | Inpatient (IN) | payer OTHER ==
[~2025-04-29] VITALS: Ht 162.6 cm; Wt 66.7 kg
[2025-04-29] MEDS ORDERED: KETOROLAC TROMETHAMINE 30 MG VIAL IM STA (18:19)
[2025-04-29] MEDS ORDERED: 0.9 % SODIUM CHLORIDE 1,000 ML IV STA (18:19)
[2025-04-29] MEDS ORDERED: ONDANSETRON HCL 2 MG/ML VIAL IV STA (18:19)
[2025-04-29] MEDS ORDERED: FAMOTIDINE/PF 20 MG/2 ML VIAL IV STA (18:19)
[2025-04-29] MEDS ORDERED: FAMOTIDINE/PF 20 MG/2 ML VIAL ONE ×2 (18:25→23:31)
[2025-04-29] MEDS ORDERED: ONDANSETRON HCL 2 MG/ML VIAL ONE (18:25)
[2025-04-29] MEDS ORDERED: KETOROLAC TROMETHAMINE 30 MG VIAL ONE (18:25)
[2025-04-29 19:09] LABS: URINE APPEARANCE Turbid; URINE BILIRRUBIN Negative (NEGATIVE); URINE BLOOD Large; URINE COLOR Dark Yellow; URINE GLUCOSE Negative (NEGATIVE); URINE KETONE Negative (NEGATIVE); URINE LEUKOCYTE Large; URINE NITRATE Positive; URINE UROBILINOGEN 1.0 E.U./dl
[2025-04-29 19:14] LABS: URINE CAST 4.96 uL (0.0-1.40); URINE EPITHELIAL CELLS 16.7 uL (0.0-38.8); URINE RBC 7391.5 uL (0.0-20.8)
[2025-04-29 19:19] LABS: BASO % 0.3 % (0.1-1.2); EOS # 0.07 (0.04-0.54); EOS % 0.5 % (0.7-7.0); LYMPH # 2.06 (1.18-3.74); LYMPH % 15.8 % (19.3-53.1); MEAN PLATELET VOLUME 9.20 fl (9.4-12.4); MONO # 1.00 (0.24-0.82); MONO % 7.7 % (4.7-12.5); NEUT # 9.80 (1.56-6.13); NEUT % 75.4 % (34.0-71.1); RED CELL DISTRIBUTION WIDTH 12.4 % (11.6-14.4)
[2025-04-29 19:22] LABS: TYPE CELLS SQUAMOUS; URINE BACTERIA > 9821.5 uL (0.0-1933); URINE PROTEIN 300 (NEGATIVE); URINE WBC > 5548.3 uL (0.0-23.2)
[2025-04-29 19:28] LABS: ALT/SGPT 20.0 U/L (12-78); AST/SGOT 14.0 U/L (15-37); BILIRUBIN TOTAL 0.35 mg/dL (0.3-1.2); BUN CREA RATIO 17.0 (7.0-25.0); CREATININE SERUM 0.86 mg/dL (0.55-1.02); GFR 76.47; GLOBULINA 4.2 G/DL (2.4-3.5); GLUCOSE FASTING 101.0 mg/dL (65-100); OSMOLALITY SERUM 284.0 MOSM/KG (275-295)
[2025-04-29] MEDS ORDERED: CIPROFLOXACIN IN 5 % DEXTROSE 400 MG/200 ML PIGGYBAG IV ONE (21:02)
[2025-04-29] MEDS ORDERED: CIPROFLOXACIN IN 5 % DEXTROSE 400 MG/200 ML PIGGYBAG IV STA (21:02)
[2025-04-29] MEDS ORDERED: PIPERACILLIN/TAZOBACTAM SODIUM 3.375 GM VIAL IV STA (22:55)
[2025-04-29] MEDS ORDERED: FAMOTIDINE/PF 20 MG in 0.9 % SODIUM CHLORIDE 8 ML IV PUSH SCH (23:01)
[2025-04-29] MEDS ORDERED: PHENAZOPYRIDINE HCL 100 MG TABLET PO SCH (23:09)
[2025-04-29] MEDS ORDERED: ONDANSETRON HCL 4 MG in 0.9 % SODIUM CHLORIDE 50 ML IV PRN (23:15)
[2025-04-29] MEDS ORDERED: 0.9 % SODIUM CHLORIDE 1,000 ML IV SCH (23:15)
[2025-04-29] MEDS ORDERED: ACETAMINOPHEN 325 MG TABLET PO PRN (23:15)
[2025-04-29] MEDS ORDERED: PIPERACILLIN/TAZOBACTAM SODIUM 3.375 GM VIAL IV ONE (23:30)
[2025-04-29] MEDS ORDERED: PHENAZOPYRIDINE HCL 100 MG TABLET PO ONE (23:30)
[2025-04-30] MEDS ORDERED: PIPERACILLIN/TAZOBACTAM SODIUM 3.375 GM in 0.9 % SODIUM CHLORIDE 100 ML IV SCH
[2025-04-30 03:16] VITALS: BP 72/45; O2SAT 98
[2025-04-30] MEDS ORDERED: MEROPENEM 500 MG/VIAL VIAL IV SCH (06:00)
[2025-04-30 07:53] LABS: BASO % 0.3 % (0.1-1.2); EOS # 0.18 (0.04-0.54); EOS % 2.6 % (0.7-7.0); LYMPH # 1.45 (1.18-3.74); LYMPH % 20.9 % (19.3-53.1); MEAN PLATELET VOLUME 9.50 fl (9.4-12.4); MONO # 0.58 (0.24-0.82); MONO % 8.4 % (4.7-12.5); NEUT # 4.69 (1.56-6.13); NEUT % 67.5 % (34.0-71.1); RED CELL DISTRIBUTION WIDTH 12.7 % (11.6-14.4)
[2025-04-30 08:00] VITALS: BP 98/64; O2SAT 98
[2025-05-01 00:46] VITALS: BP 76/50; O2SAT 100
[2025-05-01 07:31] VITALS: BP 100/66; O2SAT 98
[2025-05-01 09:05] LABS: BASO % 0.3 % (0.1-1.2); EOS # 0.22 (0.04-0.54); EOS % 3.7 % (0.7-7.0); LYMPH # 1.65 (1.18-3.74); LYMPH % 27.5 % (19.3-53.1); MEAN PLATELET VOLUME 9.70 fl (9.4-12.4); MONO # 0.41 (0.24-0.82); MONO % 6.8 % (4.7-12.5); NEUT # 3.69 (1.56-6.13); NEUT % 61.4 % (34.0-71.1); RED CELL DISTRIBUTION WIDTH 12.6 % (11.6-14.4)
[2025-05-01 09:47] LABS: ALT/SGPT 17.0 U/L (12-78); AST/SGOT 12.0 U/L (15-37); BILIRUBIN TOTAL 0.26 mg/dL (0.3-1.2); BUN CREA RATIO 11.0 (7.0-25.0); CREATININE SERUM 0.7 mg/dL (0.55-1.02); GFR 96.97; GLOBULINA 3.2 G/DL (2.4-3.5); GLUCOSE FASTING 96.0 mg/dL (65-100); OSMOLALITY SERUM 287.0 MOSM/KG (275-295)
[2025-05-01] MEDS ORDERED: SOD FERRIC GLUC COMPLX/SUCROSE 62.5 MG in 0.9 % SODIUM CHLORIDE 50 ML IV NR (12:00)
[2025-05-01] MEDS ORDERED: Cyanocobalamin/Mecobalamin 1 TAB.SL SL NR (12:00)
[2025-05-01] MEDS ORDERED: MAGNESIUM SULFATE IN WATER 50 ML IV NR (12:00)
[2025-05-01] MEDS ORDERED: SIMETHICONE 125 MG CAPSULE PO SCH (13:00)
[2025-05-01] MEDS ORDERED: ENOXAPARIN SODIUM 40 MG/0.4 ML SYRINGE SUBCUTANEO NR (13:45)
[2025-05-01] MEDS ORDERED: MULTIVIT INFUSN,ADULT 4,VIT K 10 ML VIAL IV NR (13:45)
[2025-05-01 15:56] VITALS: BP 98/63; O2SAT 97
[2025-05-01] MEDS ORDERED: LACTOBACILLUS ACIDOPHILUS 1 CAP CAP PO SCH (17:00)
[2025-05-02 00:26] VITALS: BP 93/59; BP 96/59; O2SAT 97
[2025-05-02 06:44] LABS: BASO % 0.3 % (0.1-1.2); EOS # 0.28 (0.04-0.54); EOS % 4.3 % (0.7-7.0); LYMPH # 1.90 (1.18-3.74); LYMPH % 29.2 % (19.3-53.1); MEAN PLATELET VOLUME 9.90 fl (9.4-12.4); MONO # 0.44 (0.24-0.82); MONO % 6.8 % (4.7-12.5); NEUT # 3.85 (1.56-6.13); NEUT % 59.1 % (34.0-71.1); RED CELL DISTRIBUTION WIDTH 12.3 % (11.6-14.4)
[2025-05-02 08:36] VITALS: BP 103/66; O2SAT 98
[2025-05-02] MEDS ORDERED: SOD FERRIC GLUC COMPLX/SUCROSE 62.5 MG in 0.9 % SODIUM CHLORIDE 50 ML IV SCH (09:00)
[2025-05-02] MEDS ORDERED: ENOXAPARIN SODIUM 40 MG/0.4 ML SYRINGE SUBCUTANEO SCH (09:00)
[2025-05-02] MEDS ORDERED: Cyanocobalamin/Mecobalamin 1 TAB.SL SL SCH (09:00)
[2025-05-02] MEDS ORDERED: MULTIVIT INFUSN,ADULT 4,VIT K 10 ML VIAL IV SCH (09:00)
[2025-05-02 10:35] LABS: ob NEGATIVE (NEGATIVE)
[2025-05-02 13:53] LABS: URINE APPEARANCE Clear; URINE BILIRRUBIN Negative (NEGATIVE); URINE BLOOD Large; URINE COLOR Dark Yellow; URINE GLUCOSE Negative (NEGATIVE); URINE KETONE Negative (NEGATIVE); URINE LEUKOCYTE Moderate; URINE NITRATE Positive; URINE PROTEIN 30 (NEGATIVE); URINE UROBILINOGEN 1.0 E.U./dl
[2025-05-02 13:57] LABS: URINE BACTERIA 63.5 uL (0.0-1933); URINE EPITHELIAL CELLS 4.3 uL (0.0-38.8); URINE RBC 1126.8 uL (0.0-20.8); URINE WBC 216.3 uL (0.0-23.2)
[2025-05-02 14:08] LABS: URINE CAST 0.00 uL (0.0-1.40)
[2025-05-02 15:30] VITALS: BP 97/62; O2SAT 98
[2025-05-03 01:30] VITALS: BP 78/54; O2SAT 99
[2025-05-03 09:10] VITALS: BP 106/71; O2SAT 99
[2025-05-03 15:10] VITALS: BP 97/62; O2SAT 97
[2025-05-03] MEDS ORDERED: SIMETHICONE125 M1 PO (16:48)
[2025-05-03] MEDS ORDERED: LACTOBACILLUS ACIDOPHILUS 1 CAP CAP PO SCH (17:00)
[2025-05-04 01:52] VITALS: BP 80/51; O2SAT 100
[2025-05-04 08:49] VITALS: BP 105/71; O2SAT 98
== END 2025-05-04 14:56 | disposition home or self-care (01) | DRG 690 ==
LOC: ER 17:24 → SURG 23:29
PROVIDERS: General Practice; Internal Medicine Geriatric Medicine; Internal Medicine Infectious Disease; ADMIT Surgery; ATTEND Surgery
PROC: BW21ZZZ Computerized Tomography (CT Scan) of Abdomen and Pelvis (ICD-10-PCS; 2025-04-29)
PROC: BW4GZZZ Ultrasonography of Pelvic Region (ICD-10-PCS; 2025-04-29)
PROC: 0T9B70Z Drainage of Bladder with Drainage Device, Via Natural or Artificial Opening (ICD-10-PCS; principal; 2025-04-30)
PROC: BW2GYZZ Computerized Tomography (CT Scan) of Pelvic Region using Other Contrast (ICD-10-PCS; 2025-05-01)
DX: N39.0 Urinary tract infection, site not specified (principal); N10 Acute pyelonephritis; N80.9 Endometriosis, unspecified; D64.89 Other specified anemias; Z96.0 Presence of urogenital implants; Z93.6 Other artificial openings of urinary tract status

== ENCOUNTER 2025-05-08 12:54 | Inpatient (IN) | payer OTHER ==
[~2025-05-08] VITALS: Ht 162.6 cm; Wt 66.7 kg
[~2025-05-08 12:54] MED LIST changes: +SIMETHICONE125 M1 PO
--- NOTE | 2025-05-08 14:13 | NUR ---
SE RECIBE PACIENTE ALERTA Y ORIENTADA X3 QUIEN REFIERE CHIDI TENIDO 5 EPISODIOS DE VOMITOS DESDE LA MANANA. SE MIDEN S/V Y SE UBICA EN MAYNOR CON BARANDAS ELEVADAS Y NIVEL MAS BAJO DE LA MISMA.
[2025-05-08] MEDS ORDERED: 0.9 % SODIUM CHLORIDE 1,000 ML IV ONE (15:00)
[2025-05-08] MEDS ORDERED: FAMOTIDINE/PF 20 MG/2 ML VIAL IV ONE (15:00)
[2025-05-08] MEDS ORDERED: ONDANSETRON HCL 2 MG/ML VIAL IV ONE (15:00)
[2025-05-08] MEDS ORDERED: CEFTRIAXONE SODIUM 1,000 MG VIAL IV ONE (15:00)
--- NOTE | 2025-05-08 16:10 | NUR ---
SE EDUCA PACIENTE SOBRE EL TX MEDICO Y ESTA REFIERE ENTENDER. SE CANALIZA Y SE ADMINISTRA MEDICAMENTOS ERNESTO ORDEN MEDICA. SE BARRY MUESTRAS DE LABORATORIOS Y SE ENVIAN. SE ENTREGA ENVASE DE U/A Y U/C
--- NOTE | 2025-05-08 16:11 | NUR ---
PENDIENTE A CT SCAN
[2025-05-08 16:14] LABS: BASO % 0.4 % (0.1-1.2); EOS # 0.14 (0.04-0.54); EOS % 1.2 % (0.7-7.0); LYMPH # 1.88 (1.18-3.74); LYMPH % 16.5 % (19.3-53.1); MEAN PLATELET VOLUME 9.30 fl (9.4-12.4); MONO # 0.50 (0.24-0.82); MONO % 4.4 % (4.7-12.5); NEUT # 8.78 (1.56-6.13); NEUT % 77.3 % (34.0-71.1); RED CELL DISTRIBUTION WIDTH 12.6 % (11.6-14.4)
[2025-05-08 16:34] LABS: ALT/SGPT 51.0 U/L (12-78); AST/SGOT 21.0 U/L (15-37); BILIRUBIN TOTAL 0.34 mg/dL (0.3-1.2); BUN CREA RATIO 15.0 (7.0-25.0); CREATININE SERUM 0.72 mg/dL (0.55-1.02); GFR 93.87; GLOBULINA 4.1 G/DL (2.4-3.5); GLUCOSE FASTING 110.0 mg/dL (65-100); OSMOLALITY SERUM 281.0 MOSM/KG (275-295)
[2025-05-08 16:38] LABS: INR 1.03
[2025-05-08] MEDS ORDERED: METOCLOPRAMIDE HCL 5 MG/ML VIAL IV ONE (17:30)
[2025-05-08 17:47] LABS: URINE APPEARANCE Cloudy; URINE BACTERIA 609.5 uL (0.0-1933); URINE BILIRRUBIN Negative (NEGATIVE); URINE BLOOD Large; URINE COLOR Dark Yellow; URINE EPITHELIAL CELLS 19.0 uL (0.0-38.8); URINE GLUCOSE Negative (NEGATIVE); URINE KETONE Trace (NEGATIVE); URINE LEUKOCYTE Moderate; URINE NITRATE Negative; URINE UROBILINOGEN 1.0 E.U./dl; URINE WBC 324.1 uL (0.0-23.2)
[2025-05-08 17:58] LABS: URINE CAST 0.14 uL (0.0-1.40); URINE PROTEIN 300 (NEGATIVE)
[2025-05-08] MEDS ORDERED: PANTOPRAZOLE SODIUM 40 MG in 0.9 % SODIUM CHLORIDE 8 ML IV PUSH SCH (19:53)
[2025-05-08] MEDS ORDERED: MEROPENEM 500 MG/VIAL VIAL IV SCH (19:54)
[2025-05-08] MEDS ORDERED: ONDANSETRON HCL 4 MG in 0.9 % SODIUM CHLORIDE 50 ML IV PRN (20:00)
[2025-05-08] MEDS ORDERED: 0.9 % SODIUM CHLORIDE 1,000 ML IV SCH (20:00)
[2025-05-08] MEDS ORDERED: ACETAMINOPHEN 325 MG TABLET PO PRN (20:00)
[2025-05-08] MEDS ORDERED: MORPHINE SULFATE 2 MG/ML SYRINGE IV PRN (20:00)
[2025-05-08] MEDS ORDERED: ENOXAPARIN SODIUM 40 MG/0.4 ML SYRINGE SUBCUTANEO SCH ×2 (20:19→20:48)
[2025-05-09 06:34] LABS: BASO % 0.5 % (0.1-1.2); EOS # 0.11 (0.04-0.54); EOS % 1.0 % (0.7-7.0); LYMPH # 2.21 (1.18-3.74); LYMPH % 20.7 % (19.3-53.1); MEAN PLATELET VOLUME 9.90 fl (9.4-12.4); MONO # 0.63 (0.24-0.82); MONO % 5.9 % (4.7-12.5); NEUT # 7.64 (1.56-6.13); NEUT % 71.6 % (34.0-71.1); RED CELL DISTRIBUTION WIDTH 12.6 % (11.6-14.4)
[2025-05-09] MEDS ORDERED: PIPERACILLIN/TAZOBACTAM SODIUM 3.375 GM in DEXTROSE 5 % IN WATER 100 ML IV SCH (06:49)
[2025-05-09 07:00] LABS: ALT/SGPT 36.0 U/L (12-78); AST/SGOT 15.0 U/L (15-37); BILIRUBIN TOTAL 0.44 mg/dL (0.3-1.2); BUN CREA RATIO 19.0 (7.0-25.0); CREATININE SERUM 0.68 mg/dL (0.55-1.02); GFR 100.27; GLOBULINA 3.6 G/DL (2.4-3.5); GLUCOSE FASTING 97.0 mg/dL (65-100); OSMOLALITY SERUM 281.0 MOSM/KG (275-295)
[2025-05-09 09:42] VITALS: BP 103/67; O2SAT 98
[2025-05-09 17:51] VITALS: BP 105/70; O2SAT 98
[2025-05-09] MEDS ORDERED: VANCOMYCIN HCL 1,000 MG VIAL IV NR (18:00)
[2025-05-09] MEDS ORDERED: AMPICILLIN SODIUM/SULBACTAM NA 3,000 MG VIAL IV SCH (20:00)
[2025-05-10 01:22] VITALS: BP 95/47; O2SAT 97
[2025-05-10] MEDS ORDERED: VANCOMYCIN HCL 1,000 MG VIAL IV SCH (05:00)
[2025-05-10 08:47] VITALS: BP 93/58; O2SAT 97
[2025-05-10 18:40] VITALS: BP 107/75; O2SAT 97
[2025-05-11 02:11] VITALS: BP 90/58; O2SAT 97
[2025-05-11 08:59] VITALS: BP 91/64; O2SAT 96
[2025-05-11] MEDS ORDERED: PANTOPRAZOLE SODIUM 40 MG TABLET.DR PO SCH (09:00)
[2025-05-11 10:12] LABS: BASO % 0.3 % (0.1-1.2); EOS # 0.17 (0.04-0.54); EOS % 2.8 % (0.7-7.0); LYMPH # 1.58 (1.18-3.74); LYMPH % 25.6 % (19.3-53.1); MEAN PLATELET VOLUME 9.80 fl (9.4-12.4); MONO # 0.40 (0.24-0.82); MONO % 6.5 % (4.7-12.5); NEUT # 3.97 (1.56-6.13); NEUT % 64.5 % (34.0-71.1); RED CELL DISTRIBUTION WIDTH 12.3 % (11.6-14.4)
[2025-05-11 17:50] VITALS: BP 123/0; BP 123/70
[2025-05-11] MEDS ORDERED: SIMETHICONE 125 MG CAPSULE PO SCH (18:00)
[2025-05-12 03:24] VITALS: BP 88/55; O2SAT 99
[2025-05-12 09:04] VITALS: BP 113/75; O2SAT 99
[2025-05-12] MEDS ORDERED: CHLORHEXIDINE GLUCONATE 120 ML BOTTLE TOP ONE (14:31)
[2025-05-12] MEDS ORDERED: ONDANSETRON HCL 2 MG/ML VIAL ONE (16:26)
[2025-05-12 18:19] VITALS: BP 111/83
[2025-05-13 03:47] VITALS: BP 85/54; O2SAT 98
[2025-05-13 08:52] VITALS: BP 116/72; O2SAT 99
[2025-05-13 17:21] VITALS: BP 96/64; O2SAT 99
[2025-05-14 02:18] VITALS: BP 84/51; O2SAT 97
[2025-05-14 08:25] VITALS: BP 98/56; O2SAT 98
== END 2025-05-14 13:12 | disposition home or self-care (01) | DRG 690 ==
LOC: ER 12:55 → MEDI 20:22
PROVIDERS: General Practice; Internal Medicine Geriatric Medicine; ADMIT Urology; ATTEND Urology
PROC: BW21YZZ Computerized Tomography (CT Scan) of Abdomen and Pelvis using Other Contrast (ICD-10-PCS; 2025-05-08)
PROC: 0TPD8DZ Removal of Intraluminal Device from Urethra, Via Natural or Artificial Opening Endoscopic (ICD-10-PCS; principal; 2025-05-12 18:15)
DX: N39.0 Urinary tract infection, site not specified (principal); T83.512A Infection and inflammatory reaction due to nephrostomy catheter, initial encounter; N13.9 Obstructive and reflux uropathy, unspecified; N36.8 Other specified disorders of urethra; B95.2 Enterococcus as the cause of diseases classified elsewhere